=== PATIENT | male | born 1975 | race Two or more races ===

== ENCOUNTER 2020-09-07 09:55 | Outpatient (CLI) | payer OTHER | END 2020-09-07 16:36 | disposition home or self-care (01) | LOC: OFIC 805 09:55 | PROVIDERS: ATTEND Otolaryngology Otology & Neurotology | DX: J34.2 Deviated nasal septum (principal); J31.0 Chronic rhinitis ==

== ENCOUNTER → 2020-10-12 | Outpatient (CLI) | payer OTHER | END | disposition home or self-care (01) | LOC: OFIC 805 10-05 09:30 | PROVIDERS: ATTEND Otolaryngology Otology & Neurotology | DX: J34.2 Deviated nasal septum (principal); J31.0 Chronic rhinitis; K21.9 Gastro-esophageal reflux disease without esophagitis; F41.8 Other specified anxiety disorders ==

== ENCOUNTER 2020-10-24 13:27 | Outpatient (CLI) | payer OTHER | END 2020-10-24 14:25 | disposition home or self-care (01) | LOC: OFIC 805 13:27 | PROVIDERS: ATTEND Otolaryngology Otology & Neurotology | DX: J34.3 Hypertrophy of nasal turbinates (principal); J34.2 Deviated nasal septum; J31.0 Chronic rhinitis; J34.9 Unspecified disorder of nose and nasal sinuses ==

== ENCOUNTER 2020-12-14 09:20 | Day surgery (SDC) | payer OTHER ==
[2020-12-14] MEDS ORDERED: AMOXICILLIN500 M1 PO (12:53)
== END 2020-12-14 21:20 | disposition home or self-care (01) ==
LOC: CIR.AMB 09:20
PROVIDERS: ATTEND Otolaryngology Otology & Neurotology
DX: J34.2 Deviated nasal septum (principal); J34.3 Hypertrophy of nasal turbinates; Z20.822 Contact with and (suspected) exposure to COVID-19

== ENCOUNTER 2020-12-19 10:33 | Outpatient (CLI) | payer OTHER ==
[~2020-12-19 10:33] MED LIST: AMOXICILLIN500 M1 PO
== END 2020-12-19 12:48 | disposition home or self-care (01) ==
LOC: OFIC 805 10:33
PROVIDERS: ATTEND Otolaryngology Otology & Neurotology
DX: J34.2 Deviated nasal septum (principal); J31.0 Chronic rhinitis; J34.3 Hypertrophy of nasal turbinates; J34.89 Other specified disorders of nose and nasal sinuses